=== PATIENT | female | born 1945 | race African-American/Black ===

== ENCOUNTER 2017-09-26 08:37 | Emergency (ER) | payer MEDICARE ==
[~2017-09-26] VITALS: Ht 170.2 cm; Wt 81.0 kg
[~2017-09-26 08:37] MED LIST: ACYCLOVIR400 MG PO; ATENOLOL25 MG PO; DEXILANT60 MG PO; ESTRACE VAG0.1 MG/GM VA; PRILOSEC20 MG/CAP PO; ULTRAM50 MG OR; ZANTAC 75 PO; ZYRTEC10 M2 PO
[2017-09-26] MEDS ORDERED: SINGULAIR10 MG PO (08:50)
[2017-09-26 09:37] VITALS: BP 116/65
== END 2017-09-26 09:42 | disposition home or self-care (01) ==
LOC: ED 08:37
DX: S92.355A Nondisplaced fracture of fifth metatarsal bone, left foot, initial encounter for closed fracture (principal); W01.0XXA Fall on same level from slipping, tripping and stumbling without subsequent striking against object, initial encounter; Y93.01 Activity, walking, marching and hiking; Y92.410 Unspecified street and highway as the place of occurrence of the external cause; Z85.6 Personal history of leukemia

== ENCOUNTER 2020-07-27 11:03 | Emergency (ER) | payer MEDICARE ==
[~2020-07-27] VITALS: Ht 170.2 cm; Wt 80.0 kg
[~2020-07-27 11:03] MED LIST changes: +SINGULAIR10 MG PO
[2020-07-27] MEDS ORDERED: IBUPROFEN600 MG PO (12:42)
[2020-07-27] MEDS ORDERED: ULTRAM50 MG PO (12:42)
[2020-07-27 13:15] VITALS: BP 158/74
== END 2020-07-27 13:15 | disposition home or self-care (01) ==
LOC: ED 11:03
DX: M76.61 Achilles tendinitis, right leg (principal); Z85.6 Personal history of leukemia

== ENCOUNTER 2022-06-25 14:48 | Emergency (ER) | payer MEDICARE ==
[2022-06-25] VITALS (8 sets, daily range): BP systolic 139–165; BP diastolic 75–87
[~2022-06-25] VITALS: Ht 170.2 cm; Wt 90.0 kg
[~2022-06-25 14:48] MED LIST changes: +IBUPROFEN600 MG PO; +ULTRAM50 MG PO
== END 2022-06-25 16:34 | disposition home or self-care (01) ==
LOC: ED 14:48
DX: M79.641 Pain in right hand (principal); C91.10 Chronic lymphocytic leukemia of B-cell type not having achieved remission

== ENCOUNTER 2023-02-25 11:05 | Emergency (ER) | payer MEDICARE ==
[~2023-02-25] VITALS: Ht 170.2 cm; Wt 91.6 kg
[2023-02-25 11:33] VITALS: BP 158/74
[2023-02-25 11:46] VITALS: BP 139/65
[2023-02-25 12:17] VITALS: BP 143/81
[2023-02-25] MEDS ORDERED: MEDDOSEPAK PO (12:23)
[2023-02-25] MEDS ORDERED: PROTONIX40 M2 PO (12:23)
[2023-02-25] MEDS ORDERED: ZYRTEC10 MG PO (12:23)
[2023-02-25 12:31] VITALS: BP 147/66
[2023-02-25 12:45] VITALS: BP 151/94
[2023-02-25 12:58] VITALS: BP 151/94
== END 2023-02-25 13:00 | disposition home or self-care (01) ==
LOC: ED 11:05
DX: J02.9 Acute pharyngitis, unspecified (principal); K21.9 Gastro-esophageal reflux disease without esophagitis; Z20.822 Contact with and (suspected) exposure to COVID-19

== ENCOUNTER 2024-02-06 13:18 | Emergency (ER) | payer MEDICARE ==
[2024-02-06] VITALS (13 sets, daily range): BP systolic 166–206; BP diastolic 81–107
[~2024-02-06] VITALS: Ht 170.2 cm; Wt 89.5 kg
[~2024-02-06 13:18] MED LIST changes: +MEDDOSEPAK PO; +PROTONIX40 M2 PO; +ZYRTEC10 MG PO
[2024-02-06] MEDS ORDERED: hydrALAZINE HCL 10 MG TAB PO ONE (13:50)
[2024-02-06] MEDS ORDERED: ACETAMINOPHEN 325 MG/TAB PO ONE (13:55)
[2024-02-06] MEDS ORDERED: cloNIDine HCL 0.1 MG/TAB PO ONE (15:00)
[2024-02-06] MEDS ORDERED: NITROGLYCERIN 2% OINT UD 1 GM/PAK TD ONE (15:35)
[2024-02-06] MEDS ORDERED: NITRO-DUR0.6 MG/HR TD (15:55)
[2024-02-06] MEDS ORDERED: NITRO-DUR0.4 MG/HR TD (16:59)
== END 2024-02-06 16:03 | disposition home or self-care (01) ==
LOC: ED 13:18
DX: R51.9 Headache, unspecified (principal); I10 Essential (primary) hypertension; C91.10 Chronic lymphocytic leukemia of B-cell type not having achieved remission; K21.9 Gastro-esophageal reflux disease without esophagitis

== ENCOUNTER 2024-03-24 06:50 | Emergency (ER) | payer MEDICARE ==
[~2024-03-24] VITALS: Ht 170.2 cm; Wt 90.7 kg
[~2024-03-24 06:50] MED LIST changes: +NITRO-DUR0.4 MG/HR TD; +NITRO-DUR0.6 MG/HR TD
[2024-03-24 06:54] VITALS: BP 142/76
[2024-03-24 07:00] VITALS: BP 133/77
[2024-03-24 07:15] VITALS: BP 146/63
[2024-03-24 07:30] VITALS: BP 137/70
[2024-03-24 07:45] VITALS: BP 154/82
[2024-03-24] MEDS ORDERED: PAXLOVID PO (07:50)
[2024-03-24 07:53] VITALS: BP 154/82
== END 2024-03-24 07:59 | disposition home or self-care (01) ==
LOC: ED 06:50
DX: U07.1 COVID-19 (principal); R05.9 Cough, unspecified; R52 Pain, unspecified; R09.89 Other specified symptoms and signs involving the circulatory and respiratory systems; C91.10 Chronic lymphocytic leukemia of B-cell type not having achieved remission

== ENCOUNTER 2024-10-05 15:24 | Emergency (ER) | payer MEDICARE ==
[2024-10-05] VITALS (9 sets, daily range): BP systolic 105–150; BP diastolic 54–76
[~2024-10-05] VITALS: Ht 170.2 cm; Wt 82.0 kg
[~2024-10-05 15:24] MED LIST changes: +PAXLOVID PO
[2024-10-05] MEDS ORDERED: ONDANSETRON HCl 4 MG/2 ML SDV IV STA (15:42)
[2024-10-05] MEDS ORDERED: SODIUM CHLORIDE 0.9% 1,000 ML IV STA (15:42)
[2024-10-05 16:03] LABS: BASO% 0.1 % (0-3); EOS% 1.5 % (0-8); HEMATOCRIT 47.3 % (37.0-47.0); HEMOGLOBIN 15.6 g/dl (12.0-16.0); IMMATURE GRANULOCYTES 0.1 % (0.0-5.0); LYMPH% 37.6 % (15-41); MEAN CELL VOLUME 92.9 fL CALC (80.0-100.0); MEAN CORPUSCULAR HGB 30.6 pG CALC (26.0-32.0); MONO% 8.4 % (2-13); NEUT# 4.14 thou/uL (2.00-7.15); NEUT% 52.3 % (42-76); RED BLOOD COUNT 5.09 mill/uL (4.20-5.60); RED CELL DISTRI WIDTH 14.5 % (11.5-15.5)
[2024-10-05 16:03] LABS: URINE BLOOD DIPSTICK Negative (NEGATIVE); URINE GLUCOSE - DIPSTICK Negative (NEGATIVE); URINE KETONE Trace mg/dL (NEGATIVE); URINE NITRITE - DIPSTICK Negative (Negative); URINE PROTEIN - DIPSTICK Negative (NEG-TRACE); URINE UROBILINOGEN - DIPSTICK 0.2 E.U./dL (0.2)
[2024-10-05 16:04] LABS: URINE COLOR Yellow; URINE LEUK ESTERASE Moderate (NEGATIVE)
[2024-10-05] MEDS ORDERED: FAMOTIDINE 10MG/ML 2ML SDV IV ONE (16:15)
[2024-10-05] MEDS ORDERED: Pantoprazole Sodium 40 MG VIAL (Protonix) IV ONE (16:15)
[2024-10-05 16:16] LABS: ALBUMIN 4.8 g/dL (3.2-5.0); ALKALINE PHOSPHATASE 52 u/l (38-126); ANION GAP 10 (6-22 (CALC)); BILIRUBIN, TOTAL 1.1 mg/dL (0.02-1.3); BUN 12 mg/dL (8-23); BUN/CREATININE RATIO 15 (12-20 (CALC)); CARBON DIOXIDE 33 mmol/l (22-30); CHLORIDE 101 mmol/l (95-108); CREATININE 0.8 mg/dL (0.5-1.0); ESTIMATED GFR 75 ML/MIN (>=90 (CALC)); LIPASE 79 u/l (23-300); POTASSIUM 4.2 mmol/l (3.5-5.1); SGOT/AST 35 u/l (9-36); SODIUM 140 mmol/l (137-146); TOTAL PROTEIN 7.5 g/dL (6.3-8.2)
[2024-10-05 16:20] LABS: URINE RBC 0-2 RBC/hpf (0-5); URINE SQUAMOUS EPITHELIAL CELL FEW EPI/hpf (0-FEW); URINE TRANSITIONAL EPI. CELLS FEW hpf
[2024-10-05 16:21] LABS: URINE BACTERIA MODERATE hpf
[2024-10-05] MEDS ORDERED: PEPCID20 MG PO (17:43)
[2024-10-05] MEDS ORDERED: KEFLEX500 MG PO (17:43)
== END 2024-10-05 18:44 | disposition home or self-care (01) ==
LOC: ED 15:24
PROVIDERS: Nurse Practitioner
DX: K29.70 Gastritis, unspecified, without bleeding (principal); N39.0 Urinary tract infection, site not specified; I10 Essential (primary) hypertension; C91.10 Chronic lymphocytic leukemia of B-cell type not having achieved remission; K21.9 Gastro-esophageal reflux disease without esophagitis; E78.5 Hyperlipidemia, unspecified
CPT/HCPCS: J0696; J2405; J2470; Q9967